=== PATIENT | male | born 1995 | race African-American/Black ===

== ENCOUNTER 2018-09-07 14:52 | Emergency (ER) | payer SELFPAY ==
[~2018-09-07] VITALS: Ht 185.4 cm; Wt 80.9 kg
[~2018-09-07 14:52] MED LIST: NORCO 325 MG-51 TAB PO; ULTRAM 50MG TAB50 MG PO; ZOLOFT 25MG25 MG
[2018-09-07 14:56] VITALS: BP 128/72; TEMP 98.1
[2018-09-07 15:16] LABS: COLLECTION METHOD CLEAN CATCH
[2018-09-07 15:21] LABS: MUCOUS Present /lpf; PH 6 (5-8); SQUAMOUS EPITHELIAL 0-2 /hpf; URINE APPEARANCE Clear; URINE BACTERIA None Seen /hpf; URINE BILIRUBIN Negative (NEGATIVE); URINE BLOOD Negative (NEGATIVE); URINE COLOR Yellow; URINE GLUCOSE Negative (NEGATIVE); URINE KETONE Negative (NEGATIVE); URINE LEUKOCYTE ESTERASE Negative (NEGATIVE); URINE NITRATE Negative (NEGATIVE); URINE PROTEIN(semi-quant) Negative (NEGATIVE)
[2018-09-07 17:30] VITALS: PULSE 69
== END 2018-09-07 17:31 | disposition home or self-care (01) ==
LOC: COL.ER 14:52
PROVIDERS: Nurse Practitioner
DX: Z11.3 Encounter for screening for infections with a predominantly sexual mode of transmission (principal); F17.210 Nicotine dependence, cigarettes, uncomplicated; Z88.6 Allergy status to analgesic agent

== ENCOUNTER 2020-12-06 11:39 | Emergency (ER) | payer SELFPAY ==
[~2020-12-06] VITALS: Ht 185.4 cm; Wt 76.8 kg
[2020-12-06 11:53] VITALS: TEMP 97.9
[2020-12-06 12:54] LABS: ALBUMIN 4.9 gm/dL (3.5-5.0); BASO % 0.1 % (0.0-2.0); BILIRUBIN,TOTAL 1.1 mg/dL (0.0-1.0); CALCIUM 9.8 mg/dL (8.4-10.2); CREATININE, serum 0.85 (0.66-1.25); EOS % 0.4 % (0-4.0); GRAN # 8.8 (1.4-6.5); GRAN % 88.7 % (42.2-75.2); HEMATOCRIT 42.6 % (42.0-52.0); HEMOGLOBIN 14.4 g/dl (13.5-18.0); LYMPH # 0.5 (1.2-3.4); LYMPH % 5.3 % (20.0-51.0); MEAN CELL VOLUME 92 fl (80.0-100.0); MEAN CORPUSCULAR HEMOGLOBIN 31 pg (27.0-31.0); MEAN CORPUSCULAR HGB CONC 34 g/dl (33.0-37.0); MEAN PLATELET VOLUME 11.6 fl (7.4-10.4); MONO # 0.5 (0.1-0.6); MONO % 5.2 % (1.7-9.3); PLATELET COUNT 342 K/mm3 (130-400); POTASSIUM 4.3 mmol/L (3.4-5.0); RED BLOOD COUNT 4.61 M/mm3 (4.20-5.60); REDCELL DISTRIBUTION WIDTH-CV 11.1 % (11.5-14.5)
[2020-12-06] MEDS ORDERED: ZOFRAN ODT4 MG PO (13:36)
[2020-12-06] MEDS ORDERED: ZOVIRAX400 MG PO (13:36)
[2020-12-06 14:00] VITALS: BP 118/72; PULSE 74
== END 2020-12-06 14:00 | disposition home or self-care (01) ==
LOC: COL.ER 11:39
PROVIDERS: Emergency Medicine
DX: B00.9 Herpesviral infection, unspecified (principal); R11.2 Nausea with vomiting, unspecified; R19.7 Diarrhea, unspecified; Z88.6 Allergy status to analgesic agent; Z87.891 Personal history of nicotine dependence
CPT/HCPCS: J2405; J7030